=== PATIENT | male | born 1965 | race Caucasian/White ===

== ENCOUNTER 2022-07-29 21:53 | Inpatient (IN) | payer OTHER ==
[2022-07-29 22:08] VITALS: BMI 29.9
[2022-07-29] MEDS ORDERED: Ondansetron ODT 4 MG TAB PO PRN (23:53)
[2022-07-29] MEDS ORDERED: Acetaminophen 325 MG TAB PO PRN (23:53)
[2022-07-29] MEDS ORDERED: Ondansetron PF 4 MG/2 ML Vial IVP PRN (23:53)
[2022-07-30] MEDS ORDERED: Docusate 100 MG CAP PO PRN (00:08)
[2022-07-30] MEDS: Lactated Ringer's 1,000 ML IV SCH ×2 (00:35→07:04)
[2022-07-30] MEDS: Cyclobenzaprine 10 MG TAB PO PRN ×3 (00:35→13:54)
[2022-07-30 01:34] LABS: Troponin I 0.033 ng/mL (< 0.028)
[2022-07-30 03:43] LABS: #Basophils 0.1 10x3/uL (0.0-0.2); #Eosinphils 0.1 10x3/uL (0.0-0.5); #Monocytes 0.6 10x3/uL (0.0-1.1); #Neutrophils 5.1 10x3/uL (1.5-8.4); %Basophils 0.7 % (0.0-2.0); %Eosinophils 1.3 % (0.0-6.0); %Lymphocytes 15.9 % (18.0-47.0); %Monocytes 8.4 % (0.0-10.0); %Neutrophils 73.4 % (40.0-75.0); Hemoglobin 12.5 g/dL (13.5-17.5); Mean Corpuscular HGB CONC 34.6 g/dL (32.0-36.0); Mean Corpuscular Hemoglobin 28.3 pg (27.0-33.0); Mean Corpuscular Volume 81.9 fl (81.2-95.1); Mean Platelet Volume 9.6 fl (7.4-10.4); Platelet Count 236 10x3/uL (150-450); RBC Distribution Width 12.3 % (11.5-14.5); Red Blood Cell (RBC) Count 4.41 10x6/uL (4.32-5.72); White Blood Cell (WBC) Count 6.9 10x3/uL (3.5-10.5)
[2022-07-30 03:53] LABS: ALT (SGPT) 8 U/L (8-55); AST (SGOT) 17 U/L (5-34); Albumin 3.7 g/dL (3.5-5.0); Alkaline Phosphatase 77 U/L (40-110); Anion Gap 19 mmol/L (10-20); BUN (Urea Nitrogen) 18 mg/dL (8.4-25.7); Bilirubin, Total 0.6 mg/dL (0.2-1.2); Calc. Creatinine Clearance 59 mL/min (70-130); Calcium 8.7 mg/dL (7.8-10.44); Carbon Dioxide 18 mmol/L (22-29); Chloride 102 mmol/L (98-107); Estimated GFR 43; Globulin 2.5 g/dL (2.4-3.5); Glucose 136 mg/dL (70-105); Magnesium 1.4 mg/dL (1.6-2.6); Potassium 4.1 mmol/L (3.5-5.1); Protein, Total 6.2 g/dL (6.0-8.3); Sodium 135 mmol/L (136-145)
[2022-07-30] MEDS ORDERED: Magnesium 2 GM/50 ML(in water) 2 GM in Premix Bag 1 BAG IVPB SCH ×2 (05:30→12:00)
[2022-07-30] MEDS ORDERED: Electrolyte Replacement Protocol 1 EACH FS SCH (07:45)
[2022-07-30] MEDS ORDERED: Dextrose 50% Abboject 50 ML SYRINGE SLOW IVP PRN (07:46)
[2022-07-30] MEDS ORDERED: HumaLOG 300 UNITS/3 ML VIAL SC PRN ×2 (07:46)
[2022-07-30] MEDS ORDERED: Dextrose 5% in Water 1,000 ML IV PRN (07:46)
[2022-07-30] MEDS ORDERED: Lactated Ringer's 1,000 ML IV SCH (07:52)
[2022-07-30] MEDS: Alogliptin 25 MG TAB PO SCH (09:35)
[2022-07-30] MEDS: levETIRAcetam 500 MG TAB PO SCH ×2 (09:35→21:21)
[2022-07-30] MEDS: Apixaban 5 MG TAB PO SCH ×2 (09:39→21:21)
[2022-07-30] MEDS: glipiZIDE 5 MG TAB PO SCH (09:39)
[2022-07-30] MEDS: Floranex 1 GM Packet PO SCH (09:40)
[2022-07-30] MEDS: Brimonidine Tartrate 0.2% Ophth Soln 5 ml Bottle L EYE SCH ×2 (09:41→21:21)
[2022-07-30] MEDS: Timolol 0.5% Ophth Soln 5 ml Bottle L EYE SCH ×2 (09:42→21:22)
[2022-07-30] MEDS ORDERED: Aspirin 81 mg Enteric Coated Tablet PO SCH (12:30)
[2022-07-30] MEDS ORDERED: Atorvastatin Calcium 40 MG TAB PO SCH (21:00)
[2022-07-30] MEDS ORDERED: Ketorolac Tromethamine 30 MG/ML VIAL IVP SCH (21:00)
[2022-07-31] MEDS: Cyclobenzaprine 10 MG TAB PO PRN ×2 (01:00→08:07)
[2022-07-31 05:10] LABS: Magnesium 1.9 mg/dL (1.6-2.6)
[2022-07-31] MEDS ORDERED: Magnesium 2 GM/50 ML(in water) 2 GM in Premix Bag 1 BAG IVPB SCH (08:00)
[2022-07-31] MEDS: glipiZIDE 5 MG TAB PO SCH (08:07)
[2022-07-31] MEDS: Apixaban 5 MG TAB PO SCH (08:07)
[2022-07-31] MEDS: Alogliptin 25 MG TAB PO SCH (08:07)
[2022-07-31] MEDS: Floranex 1 GM Packet PO SCH (08:08)
[2022-07-31] MEDS: Timolol 0.5% Ophth Soln 5 ml Bottle L EYE SCH (08:08)
[2022-07-31] MEDS: levETIRAcetam 500 MG TAB PO SCH (08:18)
[2022-07-31] MEDS: Brimonidine Tartrate 0.2% Ophth Soln 5 ml Bottle L EYE SCH (08:22)
[2022-07-31] MEDS ORDERED: Clopidogrel Bisulfate 75 MG TAB PO SCH (09:00)
[2022-07-31] MEDS ORDERED: Aspirin 81 mg Enteric Coated Tablet PO SCH (09:00)
[2022-07-31 09:18] LABS: Cardiac Risk 4.7 (Less than 4.5)
[2022-07-31 11:47] VITALS: BP 127/86; TEMP 97.5
[2022-07-31 16:46] LABS: Hemoglobin A1c 5.3 % (4.0-6.0)
== END 2022-07-31 12:24 | disposition home or self-care (01) | DRG 65 ==
LOC: OBSVTOIN 21:53 → CSHTELE 21:53 → INTOOBSV 21:53 → UNDOADMIN 21:53 → CSHTELE 07-30 16:38 → UNDODISIN 07-31 12:24
PROVIDERS: ADMIT Family Medicine; ATTEND Internal Medicine
DX: I63.9 Cerebral infarction, unspecified (principal); E87.20 Acidosis, unspecified; E11.319 Type 2 diabetes mellitus with unspecified diabetic retinopathy without macular edema; E11.40 Type 2 diabetes mellitus with diabetic neuropathy, unspecified; N18.32 Chronic kidney disease, stage 3b; E11.22 Type 2 diabetes mellitus with diabetic chronic kidney disease; I12.9 Hypertensive chronic kidney disease with stage 1 through stage 4 chronic kidney disease, or unspecified chronic kidney disease; F17.210 Nicotine dependence, cigarettes, uncomplicated; I95.1 Orthostatic hypotension; R00.0 Tachycardia, unspecified; H81.10 Benign paroxysmal vertigo, unspecified ear; E11.42 Type 2 diabetes mellitus with diabetic polyneuropathy; G40.909 Epilepsy, unspecified, not intractable, without status epilepticus; E86.0 Dehydration; Z79.84 Long term (current) use of oral hypoglycemic drugs; Z79.899 Other long term (current) drug therapy; Z89.421 Acquired absence of other right toe(s); Z98.890 Other specified postprocedural states; Z86.73 Personal history of transient ischemic attack (TIA), and cerebral infarction without residual deficits; Z90.89 Acquired absence of other organs; Z83.3 Family history of diabetes mellitus
CPT/HCPCS: 36415; 36416; 70551; 80053; 80061; 82533; 83036; 83735; 84443; 84484; 85025; 93005; 93010; 93306; 93880; 95816; 95819; 95957; 96374; 96376; G0378; J1885; J3475; J7120